=== PATIENT | male | born 1950 | race Caucasian/White ===

== ENCOUNTER 2016-04-04 08:36 | Day surgery (SDC) | payer MEDICARE ==
[~2016-04-04] VITALS: Ht 170.2 cm; Wt 68.0 kg
[~2016-04-04 08:36] MED LIST: ALTACE10 MG PO; ASPIRIN 325MG325 MG PO; CARVEDILOL3.125 M1 PO; METFORMIN500 MG PO; ZOCOR80 MG PO
[2016-04-04 08:49] VITALS: BP 151/117; BP 153/89
[2016-04-04 09:08] VITALS: BP 153/89
[2016-04-04 09:10] VITALS: BP 151/117; BP 176/92
--- NOTE | 2016-04-04 09:30 | Procedure Note ---
Procedure detail Date of procedure: 04/04/16 Anesthesiologist: Dylan Early CRNA Complications: None Pre-procedure diagnosis: Bilateral sacroiliitis Post-procedure diagnosis: Same Indications for procedure: This patient's a pleasant 65-year-old white male that comes our pain clinic today for his initial consultation regarding chronic low back pain as well as bilateral hip and leg radiculopathy symptoms. Patient describes low back pain as constant, dull, aching, sharp, stabbing. He rates his pain 10/10. patient has extreme point tenderness over bilateral SI joints. We'll schedule him for bilateral SI joint injections. I've spoken with the patient and answered all his questions in regards to this procedure and wishes to continue. Procedure detail: Procedure: Bilateral sacroiliac joint injections under fluoroscopy Informed consent was obtained and the risks and benefits of the procedure were explained to the patient.~ The patient was taken to the procedure room and noninvasive monitors were placed including a noninvasive blood pressure cuff and pulse oximeter.~ The patient was placed prone on the procedure table. Both hips were cleansed using Betadine as a cleansing solution. C-arm fluoroscopy was used to view the right sacroiliac joint.~ The skin and subcutaneous tissues were anesthetized using lidocaine 1.5% and a 25-gauge needle.~ After this, a 22-gauge spinal needle was inserted under fluoroscopic guidance into the inferior aspect of the right sacroiliac joint.~ Omnipaque dye was injected and good spread was seen throughout the joint.~ After this, approximately 5 mL of bupivacaine, 0.25% and Depo-Medrol, 40 mg was incrementally injected into the right sacroiliac joint. We then moved to the left sacroiliac joint.~ The skin and subcutaneous tissues were anesthetized using lidocaine 1.5% and a 25-gauge needle.~ After this, a 22- gauge spinal needle was inserted under fluoroscopic guidance into the inferior aspect of the left sacroiliac joint.~ Omnipaque dye was injected and good spread was seen throughout the joint. After this, approximately 5 mL of bupivacaine, 0.25% and Depo-Medrol, 40 mg was incrementally injected into the left sacroiliac joint.~ The patient tolerated the procedure well with no complications. The patient was observed in the Pain Clinic and then was discharged home neurologically intact. Plan and disposition: We will follow up with this patient in our clinic and reassess his symptoms at that time. Of note his lumbar imaging does have pathology that we will also discuss at his follow-up visit. Patient reports 75-85 percent better in terms of his bilateral hip pain prior to leaving the procedure area. He'll follow up with us in the pain clinic for further evaluation. I did speak with him regarding his lumbar MRI. We will address this further as next visit. at 0930
[2016-04-04 09:31] VITALS: BP 161/88
== END 2016-04-04 09:32 | disposition home or self-care (01) ==
LOC: PM 08:36
PROC: 3E0U33Z Introduction of Anti-inflammatory into Joints, Percutaneous Approach (ICD-10-PCS; principal; 2016-04-04)
PROC: 3E0U3BZ Introduction of Anesthetic Agent into Joints, Percutaneous Approach (ICD-10-PCS; 2016-04-04)
DX: M46.1 Sacroiliitis, not elsewhere classified (principal)
CPT/HCPCS: G0260

== ENCOUNTER 2016-05-02 08:14 | Day surgery (SDC) | payer MEDICARE ==
[~2016-05-02] VITALS: Ht 170.2 cm; Wt 66.2 kg
[2016-05-02 08:35] VITALS: BP 154/82
[2016-05-02 08:59] VITALS: BP 154/82
[2016-05-02 09:00] VITALS: BP 152/94
--- NOTE | 2016-05-02 09:00 | Procedure Note ---
Procedure detail Date of procedure: 05/02/16 Anesthesiologist: Dylan valero CRNA Complications: None Pre-procedure diagnosis: Degenerative disease lumbar spine multiple levels. Multilevel lumbar spondylosis. Multilevel lumbar facet arthropathy. Post-procedure diagnosis: Same. Indications for procedure: This patient's a pleasant 65-year-old white male that we have been treating her pain clinic for short time regarding chronic low back pain as well as bilateral hip pain that he describes as constant, sharp, stabbing at times. He rates his pain 9/10. He is most recently bilateral SI joint injections which gave him 4-5 days of complete relief. After which time his pain returned in its entirety. His main complaint today is lumbar back pain that is midline with some bilateral hip radicular symptoms. Patient states he has no pain when sitting. His pain intensifies when standing for any short amount of time. Also, pain when ambulating any length. We discussed in detail medial branch block L3-4, L4-5, L5 -S1 bilaterally. He wishes to proceed today. Procedure detail: Informed consent was obtained and the risk and benefits of the procedure was explained to the patient. Patient was taken to the procedure room where noninvasive monitors were placed, including noninvasive blood pressure cuff as well as pulse oximeter. The area over the lumbar spine was cleansed using chlorhexidine as a cleansing solution. I anesthetized the skin and subcutaneous tissues with 1% Lidocaine. I placed 22-gauge spinal needles into the facet joint / medial branches of [L3-L4, L4-L5, and L5-S1] bilaterally. Needle placement was confirmed with fluoroscopy. After confirmation of needle placement, each site was injected with 1 mL of 1% lidocaine and 0.25 % Marcaine and 10 mg of Depo- Medrol. A total of 80 mg of depo medrol was used for bilateral medial branch blocks of [L3-L4, L4-L5, and L5-S1] bilaterally. Patient tolerated the procedure without difficulty. There were no complications. Plan and disposition: Patient was reevaluated at 10 and 20 minute intervals post procedure. Patient reports 90 percent improvement terms of his lumbar back pain as well as bilateral hip pain with ambulation, standing, sitting. Patient reports 90 percent improvement in terms of his lumbar back pain with flexion, extension, RIGHT and LEFT rotation. I discussed with the patient regarding rhizotomy lumbar spine. He wishes to proceed. We'll see him as a follow-up in the clinic within the next couple of weeks. at 0910
[2016-05-02 09:10] VITALS: BP 139/82
== END 2016-05-02 09:10 | disposition home or self-care (01) ==
LOC: PM 08:14
PROC: 3E0T33Z Introduction of Anti-inflammatory into Peripheral Nerves and Plexi, Percutaneous Approach (ICD-10-PCS; principal; 2016-05-02)
PROC: 3E0T3BZ Introduction of Anesthetic Agent into Peripheral Nerves and Plexi, Percutaneous Approach (ICD-10-PCS; 2016-05-02)
PROC: BR161ZZ Fluoroscopy of Lumbar Facet Joint(s) using Low Osmolar Contrast (ICD-10-PCS; 2016-05-02)
DX: M51.36 Other intervertebral disc degeneration, lumbar region (principal); M47.896 Other spondylosis, lumbar region; M46.96 Unspecified inflammatory spondylopathy, lumbar region
CPT/HCPCS: J1040

== ENCOUNTER → 2016-10-24 | Day surgery (SDC) | payer MEDICARE ==
[~2016-10-24] VITALS: Ht 170.2 cm; Wt 68.0 kg
[2016-10-24 14:02] VITALS: BP 158/71
[2016-10-24 14:53] VITALS: BP 158/71
[2016-10-24 14:56] VITALS: BP 195/94
--- NOTE | 2016-10-24 15:01 | Procedure Note ---
Procedure detail Date of procedure: 10/24/16 Anesthesiologist: Dylan Early Complications: None Pre-procedure diagnosis: Degenerative disc disease lumbar spine multiple levels. Lumbar facet arthropathy. Lumbar spondylosis. Post-procedure diagnosis: Same. Indications for procedure: Very pleasant 66-year-old white male that returns our procedure clinic today for medial branch block L4-5, L5-S1 bilaterally. Patient is status post RFA lumbar same levels within the last several months. However, patient return to the pain clinic with complaint of lumbar back pain in flexion, extension, LEFT and RIGHT rotation. However, not to the severity as it was prior to his RFA. We discussed medial branch block at L4-5 and L5-S1 level bilaterally. He presents today for these injections. Procedure detail: Informed consent was obtained and the risk and benefits of the procedure was explained to the patient. Patient was taken to the procedure room where noninvasive monitors were placed, including noninvasive blood pressure cuff as well as pulse oximeter. The area over the lumbar spine was cleansed using chlorhexidine as a cleansing solution. I anesthetized the skin and subcutaneous tissues with 1% Lidocaine. I placed 22-gauge spinal needles into the facet joint / medial branches of L4-5, L5-S1 bilaterally. Needle placement was confirmed with fluoroscopy. After confirmation of needle placement, each site was injected with 1 mL of 1% lidocaine and 0.25 % Marcaine and 10 mg of Depo-Medrol. A total of 80 mg of depo medrol was used for bilateral medial branch blocks of L4-5, L5- S1 bilaterally. Patient tolerated the procedure without difficulty. There were no complications. Plan and disposition: Patient was reevaluated 10 minutes post procedure. He reports 100 percent improvement terms of his lumbar back pain in flexion, extension, LEFT and RIGHT rotation. He'll follow up with us in the pain clinic for further evaluation. at 1501
[2016-10-24 15:21] VITALS: BP 143/81
== END ==
LOC: PM 13:35
PROC: 3E0T3BZ Introduction of Anesthetic Agent into Peripheral Nerves and Plexi, Percutaneous Approach (ICD-10-PCS; principal; 2016-10-24)
PROC: 3E0T33Z Introduction of Anti-inflammatory into Peripheral Nerves and Plexi, Percutaneous Approach (ICD-10-PCS; 2016-10-24)
PROC: BR161ZZ Fluoroscopy of Lumbar Facet Joint(s) using Low Osmolar Contrast (ICD-10-PCS; 2016-10-24)
DX: M51.36 Other intervertebral disc degeneration, lumbar region (principal); M12.88 Other specific arthropathies, not elsewhere classified, other specified site; M47.896 Other spondylosis, lumbar region
CPT/HCPCS: J1030